=== PATIENT | female | born 1930 | race Caucasian/White ===

== ENCOUNTER 2017-08-27 06:08 | Day surgery (SDC) | payer OTHER ==
[2017-08-23 10:32] LABS: Basophils # (auto) 0.1 uL; Eosinophils # (auto) 0.3 uL; Hemoglobin 10.4 g/dL (12.2-16.2); Lymphocytes # (auto) 3.3 uL; Nucleated Red Blood Cells % 0.1 %
[2017-08-23 10:34] LABS: Basophils % (auto) 0.9 % (0.0-2.0); Eosinophils % (auto) 4.4 % (0.0-7.0); Hematocrit 32.6 % (36.0-46.0); Lymphocytes % (auto) 43.6 % (10.0-50.0); Mean Corpuscular Hemoglobin 26.4 pg (28.0-32.0); Mean Corpuscular Volume 82.4 fL (80.0-100.0); Mean Platelet Volume 7.3 fL (6.9-10.8); Monocytes # (auto) 0.8 uL; Monocytes % (auto) 9.9 % (0.0-12.0); Neutrophils # (auto) 3.2 uL; Neutrophils % (auto) 41.2 % (37.0-80.0); Platelet Count (auto) 258 10^3/uL (140-450); Red Cell Distribution Width 16.7 % (11.8-14.3); White Blood Cell 7.7 10^3/uL (4.4-10.8)
[2017-08-23 10:44] LABS: Albumin 3.7 g/dL (3.4-5.0); BUN/Creatinine Ratio 29.7; Calcium 8.2 mg/dL (8.5-10.1); INR 0.92 (0.9-1.15); Partial Thromboplastin Time 26.1 sec (22.64-33.71); Potassium 5.4 mmol/L (3.5-5.1)
[2017-08-23 10:47] LABS: Bilirubin, Total 0.3 mg/dL (0.2-1.0)
[2017-08-23 11:30] LABS: Urine Bilirubin Negative (Negative); Urine Blood 3+ /uL (Negative); Urine Color PINK (Yellow); Urine Glucose Normal (Normal); Urine Ketone Negative (Negative); Urine Nitrite Negative (Negative); Urine RBC 1073 /hpf (0 - 4); Urine Squamous Epithelial Cell FEW /hpf (<5); Urine Urobilinogen Normal (Negative); Urine WBC Clumps PRESENT /hpf (None Seen)
[~2017-08-27] VITALS: Ht 30.5 cm; Wt 0.5 kg
[~2017-08-27 06:08] MED LIST: ACET30TA PO; ATEN50TA PO; CALC200S7; CARB10TA7 PO; CIPR-173 PO; LISI-275 PO; OMEP20CA74 PO; [UNRECOGNIZED DRUG - CODE] PO
[2017-08-27] MEDS ORDERED: cefTRIAXone 1GM/50ML D5W 50 ML IV ONE (06:43)
[2017-08-27] MEDS ORDERED: SODIUM CHLORIDE LOCK 10 ML ONE (06:53)
[2017-08-27] MEDS ORDERED: MIDAZOLAM HCL 1MG/1ML-2 ML VIAL ONE (06:53)
[2017-08-27] MEDS ORDERED: fentaNYL CITRATE 100 MCG/2 ML VL ONE (06:53)
[2017-08-27] MEDS ORDERED: ONDANSETRON HCL 4 MG/2 ML VIAL ONE (06:53)
[2017-08-27] MEDS ORDERED: PROPOFOL 10 MG/ML 20 ML IV ONE ×2 (06:53→07:50)
[2017-08-27] MEDS ORDERED: IOHEXOL 300 MG/ML 100ML BOTTLE IJ ONE (07:08)
[2017-08-27] MEDS ORDERED: METOCLOPRAMIDE HCL 5MG/ml INJ 2ml VIAL IV ONE (07:45)
[2017-08-27] MEDS ORDERED: fentaNYL CITRATE 100 MCG/2 ML VL IV ONE (08:00)
[2017-08-27 09:11] VITALS: BP 150/78
== END 2017-08-27 09:16 | disposition home or self-care (01) ==
LOC: SUR 06:08
PROVIDERS: ATTEND Urology
DX: N20.0 Calculus of kidney (principal); Z90.710 Acquired absence of both cervix and uterus; Z87.891 Personal history of nicotine dependence; Z88.0 Allergy status to penicillin; D64.9 Anemia, unspecified; E11.22 Type 2 diabetes mellitus with diabetic chronic kidney disease; I12.9 Hypertensive chronic kidney disease with stage 1 through stage 4 chronic kidney disease, or unspecified chronic kidney disease; N18.4 Chronic kidney disease, stage 4 (severe); J44.9 Chronic obstructive pulmonary disease, unspecified; G20 Parkinson's disease
CPT/HCPCS: 36415; 50590; 52332; 80053; 81001; 85025; 85610; 85730; C2617; J0696; J2250; J2405; J2704; J3010; J7030

== ENCOUNTER 2017-09-27 06:06 | Day surgery (SDC) | payer OTHER ==
[2017-09-24 10:21] LABS: Basophils # (auto) 0.1 uL; Eosinophils # (auto) 0.4 uL; Hemoglobin 10.7 g/dL (12.2-16.2); Nucleated Red Blood Cells % 0.1 %
[2017-09-24 10:22] LABS: Basophils % (auto) 0.8 % (0.0-2.0); Eosinophils % (auto) 5.5 % (0.0-7.0); Hematocrit 32.6 % (36.0-46.0); Lymphocytes # (auto) 2.8 uL; Lymphocytes % (auto) 37.7 % (10.0-50.0); Mean Corpuscular Hgb Conc. 32.9 g/dL (32.0-36.0); Monocytes # (auto) 0.9 uL; Neutrophils # (auto) 3.2 uL; Platelet Count (auto) 253 10^3/uL (140-450); White Blood Cell 7.3 10^3/uL (4.4-10.8)
[2017-09-24 10:36] LABS: Urine Bilirubin Negative (Negative); Urine Blood 1+ /uL (Negative); Urine Color Yellow (Yellow); Urine Glucose Normal (Normal); Urine Ketone Negative (Negative); Urine Nitrite Negative (Negative); Urine RBC 3 /hpf (0 - 4); Urine Squamous Epithelial Cell MOD /hpf (<5); Urine Urobilinogen Normal (Negative)
[2017-09-24 10:42] LABS: Albumin 3.8 g/dL (3.4-5.0); BUN/Creatinine Ratio 19.5; Bilirubin, Total 0.3 mg/dL (0.2-1.0); Calcium 8.8 mg/dL (8.5-10.1); Potassium 4.5 mmol/L (3.5-5.1); Total Protein 8.1 g/dL (6.4-8.2)
[~2017-09-27] VITALS: Ht 165.1 cm; Wt 70.3 kg
[~2017-09-27 06:06] MED LIST changes: -ACET30TA PO; +HYDR-531 PO
[2017-09-27] MEDS ORDERED: ceFAZolin 1GM/50ML 0 ML IV ONE (07:02)
[2017-09-27] MEDS ORDERED: CIPROFLOXACIN 400MG/200ML 200 ML IV ONE (07:09)
[2017-09-27] MEDS ORDERED: METOCLOPRAMIDE HCL 5MG/ml INJ 2ml VIAL IV ONE (07:15)
[2017-09-27] MEDS ORDERED: ONDANSETRON HCL 4 MG/2 ML VIAL ONE (07:26)
[2017-09-27] MEDS ORDERED: MIDAZOLAM HCL 1MG/1ML-2 ML VIAL ONE (07:26)
[2017-09-27] MEDS ORDERED: fentaNYL CITRATE 100 MCG/2 ML VL ONE (07:26)
[2017-09-27] MEDS ORDERED: SODIUM CHLORIDE LOCK 10 ML ONE (07:26)
[2017-09-27] MEDS ORDERED: PROPOFOL 10 MG/ML 20 ML IV ONE ×3 (07:26→08:05)
[2017-09-27] MEDS ORDERED: fentaNYL CITRATE 100 MCG/2 ML VL IV ONE (08:00)
[2017-09-27 08:55] VITALS: BP 172/99
== END 2017-09-27 09:10 | disposition home or self-care (01) ==
LOC: SUR 06:06
PROVIDERS: ATTEND Urology
DX: N20.0 Calculus of kidney (principal); Z90.710 Acquired absence of both cervix and uterus; Z87.891 Personal history of nicotine dependence; D69.6 Thrombocytopenia, unspecified; Z88.0 Allergy status to penicillin; Z88.1 Allergy status to other antibiotic agents
CPT/HCPCS: 36415; 50590; 52310; 80053; 81001; 85025; 85730; J0744; J2250; J2405; J2704; J3010; J7030; J0690

== ENCOUNTER → 2018-01-17 | Outpatient (CLI) | payer OTHER ==
[2018-01-17 07:47] LABS: Basophils # (auto) 0.1 uL; Eosinophils # (auto) 0.2 uL; Neutrophils # (auto) 2.8 uL; Nucleated Red Blood Cells % 0.1 %; Red Blood Cells 4.72 10^6/uL (4.0-5.20)
[2018-01-17 07:50] LABS: Eosinophils % (auto) 3.9 % (0.0-7.0); Hematocrit 37.9 % (36.0-46.0); Hemoglobin 12.1 g/dL (12.2-16.2); Lymphocytes # (auto) 2.5 uL; Lymphocytes % (auto) 40.7 % (10.0-50.0); Mean Corpuscular Hemoglobin 25.8 pg (28.0-32.0); Mean Corpuscular Hgb Conc. 32.1 g/dL (32.0-36.0); Mean Corpuscular Volume 80.3 fL (80.0-100.0); Monocytes # (auto) 0.6 uL; Monocytes % (auto) 9.7 % (0.0-12.0); Neutrophils % (auto) 44.7 % (37.0-80.0); Platelet Count (auto) 236 10^3/uL (140-450); Red Cell Distribution Width 18.3 % (11.8-14.3); White Blood Cell 6.2 10^3/uL (4.4-10.8)
[2018-01-17 07:58] LABS: Urine Bacteria FEW /hpf (None Seen); Urine Blood TRACE /uL (Negative); Urine Specific Gravity 1.007 (1.001-1.035); Urine WBC 320 /hpf (0 - 5); Urine WBC Clumps PRESENT /hpf (None Seen)
[2018-01-17 08:13] LABS: Protein, Urine 13.4 mg/dL (0.0-11.9)
[2018-01-17 08:32] LABS: Albumin 3.8 g/dL (3.4-5.0); BUN/Creatinine Ratio 21.4; Bilirubin, Total 0.4 mg/dL (0.2-1.0); Calcium 9.2 mg/dL (8.5-10.1); Potassium 4.7 mmol/L (3.5-5.1)
== END | disposition home or self-care (01) ==
LOC: LAB 07:04
PROVIDERS: ATTEND Student in an Organized Health Care Education/Training Program
DX: I12.9 Hypertensive chronic kidney disease with stage 1 through stage 4 chronic kidney disease, or unspecified chronic kidney disease (principal); N18.3 Chronic kidney disease, stage 3 (moderate); D63.1 Anemia in chronic kidney disease; N39.0 Urinary tract infection, site not specified; R80.9 Proteinuria, unspecified; M35.3 Polymyalgia rheumatica; I44.7 Left bundle-branch block, unspecified
CPT/HCPCS: 36415; 80053; 80061; 81001; 82570; 84156; 85025; 87086; 87088; 87186

== ENCOUNTER → 2019-10-22 | Day surgery (SDC) | payer OTHER ==
[2019-10-20 12:28] LABS: Basophils # (auto) 0.1 uL; Basophils % (auto) 0.9 % (0.0-2.0); Eosinophils # (auto) 0.3 uL; Eosinophils % (auto) 2.6 % (0.0-7.0); Hemoglobin 13.7 g/dL (12.2-16.2); Lymphocytes # (auto) 4.9 uL; Lymphocytes % (auto) 46.8 % (10.0-50.0); Mean Corpuscular Hgb Conc. 33.5 g/dL (32.0-36.0); Mean Corpuscular Volume 86.4 fL (80.0-100.0); Monocytes % (auto) 9.6 % (0.0-12.0); Neutrophils # (auto) 4.2 uL; Neutrophils % (auto) 40.1 % (37.0-80.0); Nucleated Red Blood Cells % 0.1 %; Platelet Count (auto) 270 10^3/uL (140-450); Red Blood Cells 4.74 10^6/uL (4.0-5.20); Red Cell Distribution Width 14.9 % (11.8-14.3); White Blood Cell 10.4 10^3/uL (4.4-10.8)
[2019-10-20 12:37] LABS: INR 0.93 (0.9-1.15); Partial Thromboplastin Time 26.2 sec (23.64-32.05)
[2019-10-20 12:59] LABS: Albumin 4.2 g/dL (3.4-5.0); Calcium 8.9 mg/dL (8.5-10.1); Potassium 4.2 mmol/L (3.5-5.1)
[2019-10-20 13:04] LABS: BUN/Creatinine Ratio 22.9; Bilirubin, Total 0.4 mg/dL (0.2-1.0); Total Protein 8.3 g/dL (6.4-8.2)
[2019-10-20 14:02] LABS: Urine Bacteria FEW /hpf (None Seen); Urine Blood TRACE /uL (Negative); Urine Specific Gravity 1.014 (1.001-1.035); Urine WBC 548 /hpf (0 - 5); Urine WBC Clumps PRESENT /hpf (None Seen)
[~2019-10-22] VITALS: Ht 162.6 cm; Wt 67.6 kg
[~2019-10-22] MED LIST changes: +ACET-1603 PO; -ATEN50TA PO; -CARB10TA7 PO; -CIPR-173 PO; +CIPROFLOXACIN 400MG/200ML 200 ML IV ONE; +DexAMETHasone SOD PHOS 10MG/1ML VIAL INJ ONE; +FURO1TAB33 PO; -HYDR-531 PO; +IOHEXOL 300 MG/ML 100ML BOTTLE IJ ONE; +LABETALOL HCL 5 MG/ML 4ML SYRINGE IV PRN; -LISI-275 PO; +LISI-646 PO; +METO-169 PO; +MIDAZOLAM HCL 1MG/1ML-2 ML VIAL IV PRN; +MIDAZOLAM HCL 1MG/1ML-2 ML VIAL ONE; +MORPHINE SULFATE 4 MG/ML SYR/VIAL IV PRN; -OMEP20CA74 PO; +ONDANSETRON HCL 4 MG/2 ML VIAL IV PRN; +PROPOFOL 10 MG/ML 20 ML IV ONE; +SUMA50TA16 PO; +ePHEDrine SULFATE 50 MG/ML AMP IV PRN; +fentaNYL CITRATE 100 MCG/2 ML VL ONE
[2019-10-22 10:46] VITALS: BP 166/75
== END | disposition home or self-care (01) ==
LOC: SUR 06:46
PROVIDERS: ATTEND Urology
DX: N20.0 Calculus of kidney (principal); I12.9 Hypertensive chronic kidney disease with stage 1 through stage 4 chronic kidney disease, or unspecified chronic kidney disease; N18.2 Chronic kidney disease, stage 2 (mild); Z87.891 Personal history of nicotine dependence; Z90.710 Acquired absence of both cervix and uterus; Z88.0 Allergy status to penicillin; Z88.1 Allergy status to other antibiotic agents; Z88.8 Allergy status to other drugs, medicaments and biological substances
CPT/HCPCS: 36415; 50590; 80053; 81001; 85025; 85610; 85730; J0744; J1100; J2250; J2704; J3010; Q9967

== ENCOUNTER → 2020-05-24 | Outpatient (CLI) | payer OTHER ==
[~2020-05-24] MED LIST changes: -CIPROFLOXACIN 400MG/200ML 200 ML IV ONE; -DexAMETHasone SOD PHOS 10MG/1ML VIAL INJ ONE; -IOHEXOL 300 MG/ML 100ML BOTTLE IJ ONE; -LABETALOL HCL 5 MG/ML 4ML SYRINGE IV PRN; -MIDAZOLAM HCL 1MG/1ML-2 ML VIAL IV PRN; -MIDAZOLAM HCL 1MG/1ML-2 ML VIAL ONE; -MORPHINE SULFATE 4 MG/ML SYR/VIAL IV PRN; -ONDANSETRON HCL 4 MG/2 ML VIAL IV PRN; -PROPOFOL 10 MG/ML 20 ML IV ONE; -ePHEDrine SULFATE 50 MG/ML AMP IV PRN; -fentaNYL CITRATE 100 MCG/2 ML VL ONE
[2020-05-24 07:53] LABS: Basophils # (auto) 0.1 10 ^3/uL (0-0.2); Basophils % (auto) 0.9 % (0.0-2.0); Eosinophils # (auto) 0.4 10 ^3/uL (0-0.8); Eosinophils % (auto) 5.3 % (0.0-7.0); Hemoglobin 11.7 g/dL (12.2-16.2); Lymphocytes # (auto) 2.5 10 ^3/uL (0.4-5.4); Lymphocytes % (auto) 29.4 % (10.0-50.0); Mean Corpuscular Hemoglobin 28.5 pg (28.0-32.0); Mean Corpuscular Hgb Conc. 32.5 g/dL (32.0-36.0); Mean Corpuscular Volume 87.9 fL (80.0-100.0); Monocytes # (auto) 0.9 10 ^3/uL (0-1.3); Monocytes % (auto) 10.6 % (0.0-12.0); Neutrophils # (auto) 4.5 10 ^3/uL (1.6-8.6); Neutrophils % (auto) 53.8 % (37.0-80.0); Platelet Count (auto) 256 10^3/uL (140-450); Red Blood Cells 4.09 10^6/uL (4.0-5.20); Red Cell Distribution Width 15.1 % (11.8-14.3); White Blood Cell 8.3 10^3/uL (4.4-10.8)
[2020-05-24 08:28] LABS: Albumin 3.5 g/dL (3.4-5.0); Calcium 8.7 mg/dL (8.5-10.1); Potassium 4.9 mmol/L (3.5-5.1)
[2020-05-24 08:32] LABS: BUN/Creatinine Ratio 29.2; Bilirubin, Total 0.4 mg/dL (0.2-1.0); Total Protein 7.7 g/dL (6.4-8.2)
== END | disposition home or self-care (01) ==
LOC: LAB 07:21
PROVIDERS: ATTEND Physician Assistant
DX: I11.0 Hypertensive heart disease with heart failure (principal); I50.32 Chronic diastolic (congestive) heart failure; I25.10 Atherosclerotic heart disease of native coronary artery without angina pectoris; J44.9 Chronic obstructive pulmonary disease, unspecified; D63.1 Anemia in chronic kidney disease
CPT/HCPCS: 36415; 80053; 80061; 85025

== ENCOUNTER 2020-09-01 09:02 | Inpatient (IN) | payer OTHER ==
[2020-08-26 14:43] LABS: Basophils # (auto) 0 10 ^3/uL (0-0.2); Basophils % (auto) 0.5 % (0.0-2.0); Eosinophils # (auto) 0.2 10 ^3/uL (0-0.8); Eosinophils % (auto) 2.5 % (0.0-7.0); Hematocrit 34.3 % (36.0-46.0); Hemoglobin 11.3 g/dL (12.2-16.2); Lymphocytes # (auto) 2.2 10 ^3/uL (0.4-5.4); Lymphocytes % (auto) 25.2 % (10.0-50.0); Mean Corpuscular Hemoglobin 28.7 pg (28.0-32.0); Mean Corpuscular Volume 87.2 fL (80.0-100.0); Monocytes # (auto) 0.9 10 ^3/uL (0-1.3); Neutrophils # (auto) 5.3 10 ^3/uL (1.6-8.6); Neutrophils % (auto) 61.8 % (37.0-80.0); Platelet Count (auto) 289 10^3/uL (140-450); Red Blood Cells 3.93 10^6/uL (4.0-5.20); Red Cell Distribution Width 14.9 % (11.8-14.3); White Blood Cell 8.6 10^3/uL (4.4-10.8)
[2020-08-26 14:49] LABS: Urine Bacteria MOD /hpf (None Seen); Urine Blood 2+ /uL (Negative); Urine Mucus FEW (None Seen); Urine Specific Gravity 1.017 (1.001-1.035); Urine WBC 3908 /hpf (0 - 5); Urine WBC Clumps PRESENT /hpf (None Seen)
[2020-08-26 14:59] LABS: INR 0.91 (0.9-1.15); Partial Thromboplastin Time 24.1 sec (23.0-31.2)
[2020-08-26 15:16] LABS: Albumin 3.8 g/dL (3.4-5.0); Calcium 8.6 mg/dL (8.5-10.1)
[2020-08-26 15:21] LABS: BUN/Creatinine Ratio 24.8; Bilirubin, Total 0.2 mg/dL (0.2-1.0); Total Protein 8.1 g/dL (6.4-8.2)
[2020-08-31] MEDS: SODIUM CHLORIDE 0.9% 1,000 ML IV SCH (23:00)
[~2020-09-01] VITALS: Ht 162.6 cm; Wt 94.9 kg
[~2020-09-01 09:02] MED LIST changes: -FURO1TAB33 PO; +LOVA10TA54 PO; -SUMA50TA16 PO
[2020-09-01] MEDS ORDERED: CIPROFLOXACIN 400MG/200ML 200 ML IV ONE (09:41)
[2020-09-01] MEDS ORDERED: MEPERIDINE HCL (25 MG/ML) 1ML VIAL ONE (11:28)
[2020-09-01] MEDS ORDERED: fentaNYL CITRATE 100 MCG/2 ML VL ONE (11:28)
[2020-09-01] MEDS ORDERED: MIDAZOLAM HCL 1MG/1ML-2 ML VIAL ONE (11:29)
[2020-09-01] MEDS ORDERED: MORPHINE SULFATE 4 MG/ML SYR/VIAL IV PRN (11:45)
[2020-09-01] MEDS ORDERED: MIDAZOLAM HCL 1MG/1ML-2 ML VIAL IV PRN (11:45)
[2020-09-01] MEDS ORDERED: ePHEDrine SULFATE 50 MG/ML AMP IV PRN (11:45)
[2020-09-01] MEDS ORDERED: LABETALOL HCL 5 MG/ML 4ML SYRINGE IV PRN (11:45)
[2020-09-01] MEDS ORDERED: ONDANSETRON HCL 4 MG/2 ML VIAL IV PRN (11:45)
[2020-09-01] MEDS ORDERED: PROPOFOL 10 MG/ML 20 ML IV ONE (12:06)
[2020-09-01] MEDS ORDERED: DexAMETHasone SOD PHOS 10MG/1ML VIAL INJ ONE (12:06)
[2020-09-01] MEDS ORDERED: GLUCAGON HYDROCHLORIDE (RDNA) 1 MG VIAL IV ONE (14:15)
[2020-09-01 15:19] LABS: Basophils # (auto) 0 10 ^3/uL (0-0.2); Basophils % (auto) 0.5 % (0.0-2.0); Eosinophils # (auto) 0 10 ^3/uL (0-0.8); Eosinophils % (auto) 0.5 % (0.0-7.0); Hematocrit 34.2 % (36.0-46.0); Hemoglobin 10.8 g/dL (12.2-16.2); Lymphocytes # (auto) 0.9 10 ^3/uL (0.4-5.4); Lymphocytes % (auto) 11.5 % (10.0-50.0); Mean Corpuscular Hgb Conc. 31.4 g/dL (32.0-36.0); Mean Corpuscular Volume 89.2 fL (80.0-100.0); Monocytes # (auto) 0.1 10 ^3/uL (0-1.3); Monocytes % (auto) 1.5 % (0.0-12.0); Neutrophils # (auto) 6.3 10 ^3/uL (1.6-8.6); Nucleated Red Blood Cells % 0.1 %; Platelet Count (auto) 258 10^3/uL (140-450); Red Blood Cells 3.84 10^6/uL (4.0-5.20); Red Cell Distribution Width 15.2 % (11.8-14.3); White Blood Cell 7.4 10^3/uL (4.4-10.8)
[2020-09-01] MEDS ORDERED: NITROGLYCERIN 0.4 MG SL TAB SL PRN (15:30)
[2020-09-01 15:39] LABS: Alanine Aminotransferase 22 U/L (13-56); Albumin 3.4 g/dL (3.4-5.0); Anion Gap 5 (5-15); Aspartate Aminotransferase 22 U/L (15-37); BUN/Creatinine Ratio 20.5; Blood Urea Nitrogen 39 mg/dL (7-18); Carbon Dioxide 21 mmol/L (21-32); Chloride 108 mmol/L (98-107); GFR African American 32 mL/min; GFR Non-African American 26 mL/min; Glucose 159 mg/dL (74-106); Magnesium 2.2 mg/dL (1.6-2.6); Sodium 134 mmol/L (136-145)
[2020-09-01 15:44] LABS: Alkaline Phosphatase 52 U/L (45-117); Bilirubin, Total 0.2 mg/dL (0.2-1.0); Total Protein 7.4 g/dL (6.4-8.2)
[2020-09-01 15:49] LABS: Potassium 6.4 mmol/L (3.5-5.1)
[2020-09-01] MEDS: MORPHINE SULF INJ 2 MG/ML SYRINGE 1ML IV PRN (15:56)
[2020-09-01] MEDS ORDERED: hydrALAZINE HCL 10 MG TAB PO PRN (16:15)
[2020-09-01] MEDS ORDERED: SODIUM BICARBONATE 8.4% INJ 50ML SYRINGE IV ONE (16:15)
[2020-09-01] MEDS ORDERED: DEXTROSE (50%) 50ML SYRG IV ONE ×2 (16:15→17:00)
[2020-09-01] MEDS ORDERED: ALBUTEROL SULF 2.5 MG/0.5ML(0.5%) NEB SOLN NEB ONE ×2 (16:15→17:00)
[2020-09-01] MEDS ORDERED: InsuLIN REG 1unit/0.01ml Soln (100units/ml) IV ONE ×2 (16:15→17:00)
[2020-09-01] MEDS ORDERED: CALCIUM GLUC 4.65meq/50ml D5AE 50 ML IV ONE (16:15)
--- NOTE | 2020-09-01 16:33 | NUR ---
Administered medneb tx for hyperkalemia as ordered. Pt tolerated well. HR 82, RR 16, SPO2 92% on 6lpm nasal cannula. No s/s of distress noted. RN at bedside.
[2020-09-01] MEDS ORDERED: SODIUM BICARBONATE 8.4 % INJ 50ML VIAL IV ONE (16:34)
[2020-09-01] MEDS ORDERED: SODIUM CHLORIDE 0.9% 1,000 ML IV ONE (17:00)
[2020-09-01] MEDS ORDERED: FUROSEMIDE 40 MG/4 ML VIAL IV ONE (17:00)
[2020-09-01] MEDS ORDERED: SODIUM ZIRCONIUM CYCL 10 GM PAK PO ONE (17:00)
[2020-09-01] MEDS ORDERED: FUROSEMIDE 20 MG/2 ML VIAL ONE (17:36)
[2020-09-01 19:50] LABS: BUN/Creatinine Ratio 19.8; Calcium 8.5 mg/dL (8.5-10.1); Potassium 5.2 mmol/L (3.5-5.1)
--- NOTE | 2020-09-01 20:30 | NUR ---
Telemetry admit from PACU [facility] admitted to Telemetry unit after SBAR received. S/P Left renal Lithotripsy. Patient oriented to RODY BELTRE RN primary RN,[id number], and unit policies regarding patient care and visiting hours. Patient now on continuous telemetry monitoring, tele box # 30 and telemetry reading on arrival to unit is . Patient placed on bedside oxygen, weighed by bedscale and encouraged to call if they need something. All questions and concerns addressed, patient verbalized understanding. Note:
--- NOTE | 2020-09-01 21:30 | NUR ---
Collected urine sample for urine culture. Sent and verified received from lab.
[2020-09-01 22:00] VITALS: BP 159/89
[2020-09-01 22:21] LABS: Urine Bacteria FEW /hpf (None Seen); Urine Blood 2+ /uL (Negative); Urine Specific Gravity 1.007 (1.001-1.035); Urine WBC 99 /hpf (0 - 5)
[2020-09-02 00:21] VITALS: BP 141/70
[2020-09-02] MEDS: ACETAMINOPHEN 500 MG TAB PO PRN ×2 (02:42→11:23)
--- NOTE | 2020-09-02 05:06 | NUR ---
Patient asleep. no sob and acute distress seen. will continue to educate and monitor patient.
--- NOTE | 2020-09-02 05:30 | NUR ---
obtained EKG. tolerated
[2020-09-02 05:39] VITALS: BP 141/62
[2020-09-02] MEDS: SODIUM CHLORIDE 0.9% 1,000 ML IV SCH ×2 (06:22→09:51)
[2020-09-02 06:27] LABS: Basophils # (auto) 0 10 ^3/uL (0-0.2); Basophils % (auto) 0.2 % (0.0-2.0); Eosinophils # (auto) 0 10 ^3/uL (0-0.8); Hematocrit 28.8 % (36.0-46.0); Hemoglobin 9.4 g/dL (12.2-16.2); Lymphocytes # (auto) 1.3 10 ^3/uL (0.4-5.4); Lymphocytes % (auto) 12.5 % (10.0-50.0); Mean Corpuscular Hemoglobin 28.7 pg (28.0-32.0); Mean Corpuscular Hgb Conc. 32.6 g/dL (32.0-36.0); Mean Corpuscular Volume 87.8 fL (80.0-100.0); Monocytes # (auto) 0.6 10 ^3/uL (0-1.3); Monocytes % (auto) 5.9 % (0.0-12.0); Neutrophils # (auto) 8.4 10 ^3/uL (1.6-8.6); Neutrophils % (auto) 81.4 % (37.0-80.0); Platelet Count (auto) 241 10^3/uL (140-450); Red Blood Cells 3.28 10^6/uL (4.0-5.20); Red Cell Distribution Width 15.1 % (11.8-14.3); White Blood Cell 10.3 10^3/uL (4.4-10.8)
[2020-09-02 06:55] LABS: Albumin 3.2 g/dL (3.4-5.0); BUN/Creatinine Ratio 26.4; Bilirubin, Total 0.2 mg/dL (0.2-1.0); Total Protein 6.6 g/dL (6.4-8.2)
[2020-09-02] MEDS: HYDROcodone-ACET 5/325MG TAB PO PRN ×3 (07:00→19:58)
[2020-09-02 07:10] LABS: Potassium 5.6 mmol/L (3.5-5.1)
--- NOTE | 2020-09-02 07:10 | NUR ---
CRITICAL VALUE POTASSIUM 5.6. WILL ENDORSE TO AM NURSE.
--- NOTE | 2020-09-02 08:00 | NUR ---
Opening Shift Note Assumed care of patient, awake and alert. No S/S of distress/SOB or pain. Bed in lowest/locked position, bed rails up x2, call light within reach. Instructed on POC and to call for assist PRN. Will continue to monitor for changes Q1hr and PRN.
[2020-09-02 08:50] VITALS: BP 141/87
[2020-09-02] MEDS ORDERED: NITROGLYCERIN 0.2MG/HR TOPICAL PATCH TD SCH (10:00)
[2020-09-02] MEDS ORDERED: LISINOPRIL 20 MG TAB PO SCH (10:00)
[2020-09-02] MEDS ORDERED: ASPirin 81 mg TAB PO ONE (10:15)
[2020-09-02] MEDS ORDERED: amLODIPine BESYLATE 5 MG TAB PO ONE (10:15)
--- NOTE | 2020-09-02 11:11 | NUR ---
ORTHO VS SITTING 148/78 B/P 99 HR STANDING 148/78 B/P 95 HR LAYING 153/71 B/P 101 HR
--- NOTE | 2020-09-02 12:30 | NUR ---
ROUNDS DR DOWLING AT BEDSIDE
[2020-09-02 13:00] VITALS: BP 148/75
[2020-09-02] MEDS ORDERED: NITROFURANTOIN 100 mg CAP PO ONE (13:15)
[2020-09-02] MEDS: SODIUM ZIRCONIUM CYCL 10 GM PAK PO SCH ×2 (13:34→23:45)
[2020-09-02 14:37] LABS: BUN/Creatinine Ratio 23.7; Magnesium 2.1 mg/dL (1.6-2.6); Phosphorus 2.8 mg/dL (2.5-4.90); Potassium 5.2 mmol/L (3.5-5.1)
[2020-09-02 17:00] VITALS: BP 150/83
--- NOTE | 2020-09-02 17:00 | NUR ---
EKG EKG PERFORMED PER MD ORDERS. PLACED IN CHART
--- NOTE | 2020-09-02 19:00 | NUR ---
Opening Shift Note Assumed care of patient, awake and alert. No S/S of distress/SOB or pain. Insructed on POC and to callfor assist PRN, will continue to monitor for changes Q1hr and PRN.
[2020-09-02 22:00] VITALS: BP 138/69
[2020-09-02] MEDS ORDERED: NITROFURANTOIN 100 mg CAP PO SCH (22:00)
[2020-09-03] MEDS: ACETAMINOPHEN 500 MG TAB PO PRN ×3 (00:15→21:49)
[2020-09-03] MEDS: HYDROcodone-ACET 5/325MG TAB PO PRN ×2 (02:35→19:43)
[2020-09-03 04:44] VITALS: BP 125/72
[2020-09-03] MEDS: SODIUM ZIRCONIUM CYCL 10 GM PAK PO SCH ×2 (05:38→13:33)
[2020-09-03] MEDS: ONDANSETRON HCL 4 MG/2 ML VIAL IV PRN ×4 (05:45→21:49)
[2020-09-03 06:10] LABS: Potassium 4.8 mmol/L (3.5-5.1)
[2020-09-03 06:17] LABS: BUN/Creatinine Ratio 29.1
--- NOTE | 2020-09-03 07:28 | NUR ---
Opening Shift Note Assumed care of patient, awake and alert. No S/S of distress/SOB or pain. Instructed on POC and to call for assist PRN, will continue to monitor for changes Q1hr and PRN.
[2020-09-03] MEDS: SODIUM CHLORIDE 0.9% 1,000 ML IV SCH (07:45)
[2020-09-03 09:00] VITALS: BP 150/81
--- NOTE | 2020-09-03 09:01 | NUR ---
EKG performed per MD order - EKG shown to MD EKG shown to Dr. Leos. Notified MD of patient's status. MD verbalized understanding. Orders received and read back to verify.
--- NOTE | 2020-09-03 09:11 | NUR ---
RE: Lokelma Medication to be administered per Dr. Leos.
[2020-09-03] MEDS ORDERED: METOPROLOL TARTRATE 1MG/1ML-5ML VIAL IV PRN (09:15)
--- NOTE | 2020-09-03 09:24 | NUR ---
RE: Cardiology Spoke with Bryson Garcia RE: EKG. Jose and Dr. Leos discussed POC.
[2020-09-03] MEDS: ASPirin 81 mg TAB PO SCH (09:57)
[2020-09-03] MEDS: amLODIPine BESYLATE 5 MG TAB PO SCH (09:58)
[2020-09-03] MEDS: MORPHINE SULF INJ 2 MG/ML SYRINGE 1ML IV PRN ×2 (09:58→15:39)
[2020-09-03] MEDS: levoFLOXacin 500 MG TAB PO SCH (09:58)
--- NOTE | 2020-09-03 10:22 | NUR ---
Family called for update Patient's daughter, Minerva, called for an update. Password provided was incorrect. Spoke with patient RE: phone call and password. Patient changed password on file and provided verbal authorization for this RN to provide update on patients status. Update provided.
[2020-09-03 13:00] VITALS: BP 123/63
[2020-09-03 16:47] VITALS: BP 123/53
--- NOTE | 2020-09-03 18:51 | NUR ---
closing note Pt resting in bed with no s/s of distress, SOB, or pain. Fall precautions in place and call light within reach.
--- NOTE | 2020-09-03 19:06 | NUR ---
Care endorsed to Elder Arguello RN.
[2020-09-03 22:00] VITALS: BP 134/62
[2020-09-03 22:57] VITALS: BP 134/62
[2020-09-04] MEDS: MORPHINE SULF INJ 2 MG/ML SYRINGE 1ML IV PRN (00:29)
[2020-09-04] MEDS: SODIUM ZIRCONIUM CYCL 10 GM PAK PO SCH ×2 (00:30→05:47)
[2020-09-04 05:00] VITALS: BP 129/64
[2020-09-04 07:36] LABS: Potassium 4.3 mmol/L (3.5-5.1)
[2020-09-04 07:44] LABS: BUN/Creatinine Ratio 23.2
[2020-09-04 07:45] LABS: Calcium 8.3 mg/dL (8.5-10.1)
--- NOTE | 2020-09-04 08:00 | NUR ---
Morning note Patient resting in bed with even and unlabored respirations on room air, no distress noted. Instructed patient on POC, fall precautions and to call for assistance as needed. patient verbalized understanding. Fall precautions in place with call light within reach.
[2020-09-04 09:00] VITALS: BP 148/73
[2020-09-04] MEDS: HYDROcodone-ACET 5/325MG TAB PO PRN (09:26)
[2020-09-04] MEDS: levoFLOXacin 500 MG TAB PO SCH (09:26)
[2020-09-04] MEDS: ASPirin 81 mg TAB PO SCH (09:26)
[2020-09-04] MEDS: amLODIPine BESYLATE 5 MG TAB PO SCH (09:27)
[2020-09-04 12:59] VITALS: BP 125/77
--- NOTE | 2020-09-04 14:01 | NUR ---
was at bedside - Dr. Serrato This RN was at bedside. Discharge plan discussed with patients daughter, Freya, on the telephone.
--- NOTE | 2020-09-04 15:38 | NUR ---
Discharge Discharge education and paperwork provided to the patient per MD order. Patient instructed to contact PCP, wire wrapper machine operator, and urologist to schedule a follow up appointments. Patient verbalized understanding to all information provided. Respirations even and unlabored on room air. IV removed with aseptic technique, catheter intact. Dressing applied. patient tolerated well, no trauma to site. Telemonitor removed and returned. Patient reports having all personal belongings. Patient instructed to notify staff once transportation arrives to hospital. Patient verbalized understanding.
--- NOTE | 2020-09-04 16:13 | NUR ---
Transportation arrived to hospital Patient transferred to private vehicle via wheelchair accompanied by staff member. No distress noted.
[2020-09-04] MEDS ORDERED: METOPROLOL TARTRATE 25 MG TAB PO SCH (22:00)
== END 2020-09-04 16:13 | disposition home or self-care (01) | DRG 280 ==
LOC: SUR 09:02 → TELE-CENTR 20:30
PROVIDERS: ADMIT Urology; ATTEND Internal Medicine
PROC: 0TF4XZZ Fragmentation in Left Kidney Pelvis, External Approach (ICD-10-PCS; principal; 2020-09-01 11:18)
DX: I21.A1 Myocardial infarction type 2 (principal); N17.0 Acute kidney failure with tubular necrosis; N39.0 Urinary tract infection, site not specified; I50.32 Chronic diastolic (congestive) heart failure; I13.0 Hypertensive heart and chronic kidney disease with heart failure and stage 1 through stage 4 chronic kidney disease, or unspecified chronic kidney disease; R00.1 Bradycardia, unspecified; N20.0 Calculus of kidney; E87.5 Hyperkalemia; E66.3 Overweight; G20 Parkinson's disease; I10 Essential (primary) hypertension; G43.909 Migraine, unspecified, not intractable, without status migrainosus; N18.9 Chronic kidney disease, unspecified; E78.5 Hyperlipidemia, unspecified; R00.0 Tachycardia, unspecified; I25.10 Atherosclerotic heart disease of native coronary artery without angina pectoris; Z20.828 Contact with and (suspected) exposure to other viral communicable diseases; I35.0 Nonrheumatic aortic (valve) stenosis; Z80.1 Family history of malignant neoplasm of trachea, bronchus and lung; Z80.3 Family history of malignant neoplasm of breast; Z80.41 Family history of malignant neoplasm of ovary; Z80.8 Family history of malignant neoplasm of other organs or systems; Z81.8 Family history of other mental and behavioral disorders; Z82.0 Family history of epilepsy and other diseases of the nervous system; Z82.49 Family history of ischemic heart disease and other diseases of the circulatory system; Z82.5 Family history of asthma and other chronic lower respiratory diseases; Z83.3 Family history of diabetes mellitus; Z85.038 Personal history of other malignant neoplasm of large intestine; Z82.62 Family history of osteoporosis; Z82.3 Family history of stroke
CPT/HCPCS: 36415; 71045; 80048; 80053; 81001; 82962; 83036; 83735; 83880; 84100; 84443; 84484; 85025; 85610; 85730; 87086; 93005; 93306; 94640; G0378; J0610; J1100; J1815; J2250; J2405; J2704

== ENCOUNTER → 2020-09-12 | Outpatient (CLI) | payer OTHER | END | disposition home or self-care (01) | LOC: LAB 17:14 | PROVIDERS: ATTEND Urology | DX: N39.0 Urinary tract infection, site not specified (principal) | CPT/HCPCS: 87086 ==

== ENCOUNTER → 2021-03-08 | Outpatient (CLI) | payer OTHER ==
[~2021-03-08] MED LIST changes: -LISI-646 PO; +LISI20TA28 PO; -METO-169 PO; +METO-289 PO
== END | disposition home or self-care (01) ==
LOC: XYW 07:45
PROVIDERS: ATTEND Internal Medicine
DX: I08.3 Combined rheumatic disorders of mitral, aortic and tricuspid valves (principal); I10 Essential (primary) hypertension
CPT/HCPCS: 93306